=== PATIENT | female | born 1965 | race Caucasian/White ===

== ENCOUNTER 2021-10-08 16:06 | Emergency (ER) | payer SELFPAY ==
[~2021-10-08] VITALS: Ht 170.2 cm; Wt 73.0 kg
[2021-10-08 16:36] VITALS: BP 104/77
[2021-10-08 17:00] VITALS: BP 103/77
[2021-10-08 17:30] VITALS: BP 110/80
[2021-10-08] MEDS ORDERED: FLUOXETINE20 MG PO (20:36)
[2021-10-08] MEDS ORDERED: ADVAIR DISK1 INH (20:36)
[2021-10-08] MEDS ORDERED: PROAIR HFA108 MCG/AC IN (20:37)
[2021-10-08 20:45] VITALS: BP 118/80
== END 2021-10-08 20:45 | disposition short-term general hospital (02) | DRG 605 ==
LOC: ED 16:06
DX: S51.811A Laceration without foreign body of right forearm, initial encounter (principal); S56.521A Laceration of other extensor muscle, fascia and tendon at forearm level, right arm, initial encounter; W25.XXXA Contact with sharp glass, initial encounter; Y93.89 Activity, other specified; Y92.009 Unspecified place in unspecified non-institutional (private) residence as the place of occurrence of the external cause